=== PATIENT | male | born 1990 | race Caucasian/White ===

== ENCOUNTER 2017-06-13 13:09 | Emergency (ER) | payer MEDICAID ==
[2017-06-13 13:19] VITALS: RESP 18
--- NOTE | 2017-06-13 13:27 | EDPHY ---
H & P Time Seen by Provider: 06/13/17 13:20 HPI/ROS: CHIEF COMPLAINT: Right flank pain HISTORY OF PRESENT ILLNESS: Patient is a 26-year-old male presents emergency department with right flank pain/back pain after falling while snowboarding 5 days ago. [place] need [place] down climber a jose antonio that was approximately 20 ft high. He had a snowboard off but slipped. He struck his right flank on a rock. He now has moderate to severe pain. Worse with movement. He has had no incontinence of urine or stool. No central spinal pain. No weakness or numbness. The patient denies nausea vomiting. The patient went to urgent care was noted to have blood in his urine. He has no elmo blood per report. REVIEW OF SYSTEMS: My complete review of systems is negative except as mentioned in the HPI. Past Medical/Surgical History: Gastritis, heel fracture Past surgical history: Negative Social history: The patient denies drugs or alcohol Smoking Status: Never smoked Physical Exam: 37.0, 163/97, 102, 18, 98% on room air GENERAL: Well-appearing, in no acute distress, alert. HEAD: No evidence of trauma. EYES: PERRLA, EOMI, normal to inspection. ENT: Airway intact, normal external examination. NECK: There is no crepitus. The C-spine is nontender. NEXUS criteria is negative (no midline tenderness, no distracting injury, no altered mental status , no recent alcohol use, no focal neurologic deficit). RESPIRATORY: Clear to auscultation bilaterally, no rales, rhonchi or wheezing. There is no crepitus or palpable rib fractures. CVS: Regular rate and rhythm, no rubs, murmurs, or gallops. ABDOMEN: Soft, mild right lower quadrant tenderness to palpation with no rebound or guarding, nondistended, normal bowel sounds, no bruising or abrasions. Pelvis: Stable. No tenderness palpation. Hips full range of motion. BACK: Normal to inspection, no spinal tenderness. Right lateral lumbar tenderness to palpation. No palpable mass or deformity. SKIN: Normal color, warm, dry. No pallor or diaphoresis. EXTREMITIES: Atraumatic, neurovascularly intact distally in all extremities, pelvis is stable , hips with full range of motion, moves all extremities freely. NEURO/PSYCH: Alert and oriented x 3, GCS 15, normal mood and affect, normal motor sensory exam. Constitutional: Initial Vital Signs Temperature (C) 37.0 C 06/13/17 13:16 Heart Rate 102 H 06/13/17 13:16 Respiratory Rate 18 06/13/17 13:16 Blood Pressure 163/97 H 06/13/17 13:16 O2 Sat (%) 98 06/13/17 13:16 O2 Delivery Mode Room Air Allergies/Adverse Reactions: No Known Allergies Allergy (Unverified 06/13/17 13:15) Home Medications: Medication Instructions Recorded Hydrocodone/APAP 5/325 [[place] 1 - 2 tab PO Q4 #13 tab 06/13/17 5/325 (RX)] Medical Decision Making - Diagnostics Imaging Results: Imaging Impressions Abdomen CT 06/13/17 13:28 Impression: 1. Small free fluid in the pelvis. The etiology is unclear, however, in the setting of right-sided trauma, with some trace fluid in the right paracolic gutter, there could be a small liver laceration which is occult on imaging. 2. Nondisplaced fracture of the right transverse process of L3. Dr. Rawls discussed these findings by telephone with DARLENE ROSS at 1448 hours on 06/13/2017. ED Course/Re-evaluation: In the emergency department I discussed possible etiologies with the patient. I answered all his questions. An IV was placed. Patient did not want pain medication. Laboratory studies and CT of the abdomen pelvis with IV contrast was ordered. The patient's CBC and coags are normal CT of the abdomen pelvis: Please refer the dictated report by Dr. Rawls. Patient has some free fluid. No other visible source of blood. The patient has a transverse process fracture on the right at L4. I discussed the case with Dr. Velasquez from the trauma service. He will come and evaluate the patient. The patient was given warnings prior to leaving. He will return with worsening symptoms. Differential Diagnosis: My differential includes but is not limited to renal injury, retroperitoneal bleed, intra-abdominal hemorrhage, contusion, sprain, disc herniation, muscle strain - Data Points Laboratory Results: Laboratory Results 06/13/17 13:20 06/13/17 13:20 06/13/17 06/13/17 06/13/17 13:20 13:20 13:20 WBC 4.61 10^3/uL 10^3/uL (3.80-9.50) RBC 4.96 10^6/uL 10^6/uL (4.40-6.38) Hgb 15.3 g/dL g/dL (13.7-17.5) Hct 44.6 % % (40.0-51.0) MCV 89.9 fL fL (81.5-99.8) MCH 30.8 pg pg (27.9-34.1) MCHC 34.3 g/dL g/dL (32.4-36.7) RDW 11.9 % % (11.5-15.2) Plt Count 263 10^3/uL 10^3/uL (150-400) MPV 9.8 fL fL (8.7-11.7) Neut % (Auto) 59.3 % % (39.3-74.2) Lymph % (Auto) 32.5 % % (15.0-45.0) [place] % (Auto) 6.9 % % (4.5-13.0) Eos % (Auto) 0.4 % L % (0.6-7.6) Baso % (Auto) 0.7 % % (0.3-1.7) Nucleat RBC Rel Count 0.0 % % (0.0-0.2) Absolute Neuts (auto) 2.73 10^3/uL 10^3/uL (1.70-6.50) Absolute Lymphs (auto) 1.50 10^3/uL 10^3/uL (1.00-3.00) Absolute Monos (auto) 0.32 10^3/uL 10^3/uL (0.30-0.80) Absolute Eos (auto) 0.02 10^3/uL L 10^3/uL (0.03-0.40) Absolute Basos (auto) 0.03 10^3/uL 10^3/uL (0.02-0.10) Absolute Nucleated RBC 0.00 10^3/uL 10^3/uL (0-0.01) Immature Gran % 0.2 % % (0.0-1.1) Immature Gran # 0.01 10^3/uL 10^3/uL (0.00-0.10) PT 12.8 SEC SEC (12.0-15.0) INR 0.94 (0.83-1.16) APTT 24.1 SEC SEC (23.0-38.0) Sodium 143 mEq/L mEq/L (135-145) Potassium 3.7 mEq/L mEq/L (3.5-5.2) Chloride 103 mEq/L mEq/L (97-110) Carbon Dioxide 24 mEq/l mEq/l (22-31) Anion Gap 16 mEq/L mEq/L (8-16) BUN 8 mg/dL mg/dL (7-23) Creatinine 0.8 mg/dL mg/dL (0.7-1.3) Estimated GFR > 60 Glucose 105 mg/dL H mg/dL (70-100) Calcium 9.5 mg/dL mg/dL (8.5-10.4) Medications Given: Discontinued Medications Sodium Chloride (Ns) 1,000 mls @ 0 mls/hr IV ONCE ONE; Wide Open PRN Reason: Protocol Stop: 06/13/17 13:29 Last Admin: 06/13/17 13:38 Dose: 1,000 mls Departure - Departure Disposition: Home, Routine, Self-Care Clinical Impression: Low back pain Qualifiers: Chronicity: acute Back pain laterality: right Sciatica presence: without sciatica Qualified Code(s): M54.5 - Low back pain Cervical transverse process fracture Qualifiers: Encounter type: initial encounter Fracture type: closed Qualified Code(s): S12.9XXA - Fracture of neck, unspecified, initial encounter Condition: Good Instructions: Low Back Strain (ED), Acute Low Back Pain (ED) Additional Instructions: You have a transverse process fracture on the right. This will heal with time. Return with increasing back pain, weakness, numbness, abdominal pain, fever or any other concerns. Referrals: Manish Velasquez MD [Medical Doctor] - 5-7 days, if not improved Prescriptions: Hydrocodone/APAP 5/325 [[place] 5/325 (RX)] 1 - 2 tab PO Q4 #13 tab
[2017-06-13] MEDS ORDERED: NS 1,000 ML IV ONE (13:28)
[2017-06-13 13:37] LABS: PLATELET COUNT 263 10^3/uL (150-400)
[2017-06-13 13:46] LABS: INR 0.94 (0.83-1.16); PROTIME(PATIENT) 12.8 SEC (12.0-15.0)
[2017-06-13] MEDS ORDERED: IOPAMIDOL (ISOVUE-300) 100 ML BTL ONE (14:05)
--- NOTE | 2017-06-13 15:57 | GCON ---
[f rep st] CONSULTATION REFERRING PHYSICIAN: Radha Adler MD REASON FOR CONSULTATION: Snowboarding injury. HISTORY: Hari is a 26-year-old white male who [place] He and his buddies thought they knew the route but ended up getting cliffed out. They climbed down a 20+ foot face at a steep angle. He slid for the first stretch, got about 5 feet of air, landing on a projecting rock with his back approximately 10 feet down. This flipped him forward and he landed on his chest. The latter was after a second 10 foot drop. He was able to traverse out over the next half an hour and therefor thought that he was "ok. ". His pain became much worse several days later and has not improved. He has been taking ibuprofen. He went to Urgent Care today and was found to have blood in his urine. As a result he was sent to the hospital for evaluation. He has some back discomfort when lifting his right thigh. PAST MEDICAL HISTORY: He does not smoke tobacco. He drinks 1-2 drinks every 1- 2 weeks. He is not taking medications except the current ibuprofen which has been at the 400 mg level. His only surgery has been endoscopy several years ago which showed gastritis and duodenitis. There is no history of rheumatic fever, tuberculosis, hepatitis, or transfusions. On review of systems he has a history of concussion at approximately age 13. He has a history of a right calcaneal fracture in the past. He has 1 dental implant. He occasionally has a fever. REVIEW OF SYSTEMS: Otherwise quite negative. PHYSICAL EXAMINATION: GENERAL: He is awake and alert, oriented to person, place, and time. NEUROLOGIC: His Kenny coma scale is 15. Cranial nerves are intact. There are no focal lateralizing neurologic findings. NECK: Nontender. No cervical, supraclavicular, axillary or inguinal lymphadenopathy. BACK: Unremarkable. Spine is nontender to palpation. In his mid lumbar region , he is tender on the right. CHEST: Stable to AP and lateral compression. PELVIS: His pelvis is stable to AP and lateral compression. Studies as reported to me (I have not been able to access them), show a small amount of fluid in the pelvis. This is less than 100 cc and by Hounsfield units (per radiology) it is not blood but fluid. His kidney is otherwise unremarkable. He has a fractured right transverse process accounting for his back pain. IMPRESSION: This patient has delayed presentation from a trauma 5+ days ago. He does have a small amount of fluid in his belly, which is not blood, and I am not concerned about that. He does have a transverse process fracture accounting for his current discomfort and probably a renal contusion accounting for the hematuria earlier today. I have suggested that he use Tylenol for pain control and drink plenty of water. Augmenting that with a nonsteroidal and a Dilaudid for severe pain. He will follow up as needed. /[id number]/MODL MTDD
[2017-06-13 16:04] VITALS: BP 136/82; PULSE 67; TEMP 98.2; O2SAT 96
== END 2017-06-13 16:04 | disposition home or self-care (01) ==
DX: S12.9XXA Fracture of neck, unspecified, initial encounter (principal); S39.92XA Unspecified injury of lower back, initial encounter; E86.9 Volume depletion, unspecified; V00.318A Other snowboard accident, initial encounter; Y92.89 Other specified places as the place of occurrence of the external cause; Y99.8 Other external cause status; Y93.23 Activity, snow (alpine) (downhill) skiing, snowboarding, sledding, tobogganing and snow tubing
CPT/HCPCS: Q9967

== ENCOUNTER 2018-04-16 14:30 | Emergency (ER) | payer MEDICAID ==
[2018-04-16 14:38] VITALS: BP 146/89
--- NOTE | 2018-04-16 15:31 | EDPHY ---
H & P Stated Complaint: fell and hit head snowboarding Time Seen by Provider: 04/16/18 15:22 HPI/ROS: CHIEF COMPLAINT: Hit head snowboarding 4 days ago HISTORY OF PRESENT ILLNESS: 27-year-old male generally healthy no anticoagulant use history states that 4 days ago he was the helmeted snow boarder at [place], sustained a mechanical fall hitting his head. No loss of consciousness. No nausea or vomiting. Starting the next day he has been experiencing nonprogressive headache, dizziness, photophobia. Denies: Chest pain or trauma, abdominal pain or trauma, back pain or trauma, nausea, vomiting , midline C-spine pain, syncope or near syncope, peripheral musculoskeletal complaints REVIEW OF SYSTEMS: 10 systems reviewed and negative with the exception of the elements mentioned in the history of present illness PAST MEDICAL/SURGICAL HISTORY: no anticoagulant use, SOCIAL HISTORY: denies alcohol use at time of incident PHYSICAL EXAM 1) GENERAL: Well-developed, well-nourished, alert and oriented. Appears to be in no acute distress. Answering questions appropriately. 2) HEAD: Normocephalic, atraumatic 3) HEENT: Pupils equal, round, reactive to light bilaterally. Negative [place]. Nasopharynx, oropharynx, clear. No deformity or angulation of nose. No septal hematoma. No rhinorrhea. No oral trauma. Ears bilaterally with normal tympanic membranes. No hemotympanum. No fluid or blood in the external auditory canal. No raccoon eyes. No Mark sign. Teeth are normally aligned with no gross malocclusion, TMJ bilaterally nontender, facial bones nontender including the zygomatic arch, maxilla mandible. 4) NECK: No cervical collar is on. Posterior cervical spine is nontender, no stepoff, no effusion. Full range of motion which does not elicit any midline cervical spine pain, no posterior midline tenderness, no step-off. 5) LUNGS: Clear to auscultation bilaterally, no wheezes, no rhonchi, no retractions. No obvious signs of trauma. No chest wall pain. No flaring, no grunting. Moving symmetrically. No crepitus. 6) HEART: [Regular rate and rhythm, 7) ABDOMEN: No guarding, no rebound, no focal tenderness, no peritoneal signs, no signs of trauma, no ecchymosis 8) MUSCULOSKELETAL: Moving all extremities, no focal areas of tenderness, no obvious trauma. 9) BACK: No midline vertebral tenderness, no fluctuance, no step-off, no obvious trauma, no visual or palpable abnormality. 10) SKIN: No laceration. No abrasion 11) NEURO: Awake, alert, and oriented to person, place and time. Answers questions appropriately. There were no obvious focal neurologic abnormalities. No cerebellar dysfunction. Cranial nerves 2 through to 12 intact. Normal steady gait. Upper and lower extremities bilaterally with strength 5 / 5, reflexes 2+. DIFFERENTIAL DIAGNOSIS: Not necessarily in any particular order, my differential diagnosis includes, but is not limited to, concussion, skull fracture, intraparenchymal contusion, subarachnoid, subdural and epidural hematoma. The patient understands that this diagnosis is provisional and can never be 100% accurate. - Personal History Current Tetanus/Diphtheria Vaccine: Yes Current Tetanus Diphtheria and Acellular Pertussis (TDAP): Yes - Medical/Surgical History Hx Asthma: No Hx Chronic Respiratory Disease: No Hx Diabetes: No Hx Cardiac Disease: No Hx Renal Disease: No Hx Cirrhosis: No Hx Alcoholism: No Hx HIV/AIDS: No Hx Splenectomy or Spleen Trauma: No Other PMH: CHRONIC GASTRITIS, HEEL FX back fx - Social History Smoking Status: Never smoked Constitutional: Initial Vital Signs Temperature (C) 36.7 C 04/16/18 14:34 Heart Rate 97 04/16/18 14:34 Respiratory Rate 20 04/16/18 14:34 Blood Pressure 146/89 H 04/16/18 14:34 O2 Sat (%) 98 04/16/18 14:34 O2 Delivery Mode Room Air Allergies/Adverse Reactions: No Known Allergies Allergy (Verified 04/16/18 14:38) Home Medications: Medication Instructions Recorded NK [No Known Home Meds] 04/16/18 Medical Decision Making ED Course/Re-evaluation: Patient has negative [place] C-spine and head injury decision-making tools. I do not think that the benefits of CT imaging outweigh the risks in this patient with a low pretest suspicion for skull fracture and/or intracranial hemorrhage. Nonetheless I had a lengthy discussion with the patient I did offer CT imaging and he is in agreement he does not feel is indicated. I discussed post concussive syndrome and 2nd impact syndrome. At this time I think the patient can be discharged home with my usual and customary head injury precautions instructions and follow-up information. He feels comfortable being discharged. Care of patient under supervision of secondary supervising physician Dr Horta. Departure - Departure Disposition: Home, Routine, Self-Care Clinical Impression: Post concussive syndrome Snowboarding accident Qualifiers: Encounter type: initial encounter Qualified Code(s): V00.318A - Other snowboard accident, initial encounter Condition: Good Instructions: Concussion (ED), Head Injury (ED) Additional Instructions: ALTHOUGH THERE IS NO EVIDENCE OF SERIOUS HEAD INJURY AT THIS TIME, DELAYED SIGNS CAN APPEAR 24 TO 48 HOURS AFTER INJURY. PLEASE RETURN TO THE EMERGENCY DEPARTMENT (ED) IMMEDIATELY IF YOU HAVE INCREASED HEADACHE, PERSISTENT HEADACHE , VOMITING, WEAKNESS, CONFUSION OR VISUAL PROBLEMS. WE RECOMMEND THAT YOU DO NOT RESUME CONTACT SPORTS OR ACTIVITIES THAT TAKE COORDINATION OR BALANCE SUCH SKIING OR RIDING A BICYCLE UNTIL CLEARED TO DO SO BY YOUR DOCTOR OR BY A NEUROLOGIST. Referrals: Cynthia Lozano MD [Medical Doctor] - 2-3 days, call for appt.
== END 2018-04-16 15:44 | disposition home or self-care (01) ==
DX: S06.0X9A Concussion with loss of consciousness of unspecified duration, initial encounter (principal); K29.50 Unspecified chronic gastritis without bleeding; V00.318A Other snowboard accident, initial encounter; Y93.23 Activity, snow (alpine) (downhill) skiing, snowboarding, sledding, tobogganing and snow tubing; Y92.838 Other recreation area as the place of occurrence of the external cause; Y99.9 Unspecified external cause status